=== PATIENT | female | born 1990 | race Hispanic/Latino ===

== ENCOUNTER 2017-07-09 21:19 | Emergency (ER) | payer MEDICAID, OTHER ==
[2017-07-09 21:19] VITALS: BMI 20.2
[2017-07-09 21:25] VITALS: RESP 16; TEMP 98.2
[2017-07-09] MEDS ORDERED: TDAP Vaccine 0.5 mL Syr IM ONE (21:49)
--- NOTE | 2017-07-09 21:52 | ED PDOC ---
Arrival/HPI - General Chief Complaint: Finger,Hand,&Wrist Time Seen by Provider: 07/09/17 21:47 Historian: Patient, Partner - History of Present Illness Narrative History of Present Illness (Text): you were treated in the ED today for accidentally closing a door on your left 2nd finger otherwise without any nausea/vomiting/headache/dizziness/difficulty breathing/chest pain/abdomen pain/numbness/tingling/loss of limb function/pain with urination. 07/09/17 21:51 07/09/17 21:57 Past Medical History - Provider Review Nursing Documentation Reviewed: Yes - Travel History Have you recently traveled outside [place] w/in the past 3 mons?: No - Infectious Disease Hx of Infectious Diseases: None - Tetanus Immunization Tetanus Immunization: Unknown - Psychiatric Hx Psychophysiologic Disorder: No Hx Substance Use: No - Surgical History Other/Comment: lasik - Anesthesia Hx Anesthesia: Yes Family/Social History - Physician Review Nursing Documentation Reviewed: Yes Family/Social History: No Known Family HX Smoking Status: Light Smoker < 10 Cigarettes Daily Hx Alcohol Use: Yes Frequency of alcohol use: Socially Hx Substance Use: No Allergies/Home Meds Allergies/Adverse Reactions: Allergies No Known Allergies Allergy (Verified 07/09/17 21:20) Review of Systems - Review of Systems Constitutional: Normal Eyes: Normal ENT: Normal Respiratory: Normal Cardiovascular: Normal Gastrointestinal: Normal Genitourinary Female: Normal Musculoskeletal: Other (left 2nd finger pain) Skin: Other (see msk) Neurological: Normal Endocrine: Normal Hemo/Lymphatic: Normal Psychiatric: Normal Physical Exam Vital Signs Reviewed: Yes Vital Signs Temp Pulse Resp BP Pulse Ox 07/09/17 21:21 98.2 F 69 16 117/79 97 Temperature: Afebrile Blood Pressure: Normal Pulse: Regular Respiratory Rate: Normal Appearance: Positive for: Well-Appearing Pain Distress: Mild Mental Status: Positive for: Alert and Oriented X 3 - Systems Exam Head: Present: Atraumatic, Normocephalic Pupils: Present: PERRL Extroacular Muscles: Present: EOMI Conjunctiva: Present: Normal Ears: Present: Normal Mouth: Present: Moist Mucous Membranes Pharnyx: Present: Normal Nose (External): Present: Atraumatic Nose (Internal): Present: Normal Inspection Neck: Present: Normal Range of Motion Respiratory/Chest: Present: Clear to Auscultation, Good Air Exchange Cardiovascular: Present: Regular Rate and Rhythm Abdomen: No: Tenderness, Distention, Normal Bowel Sounds, Peritoneal Signs, Rebound, Guarding, McBurney's Point Tender, Rovsing's Sign Present, Hernias, Feeding Tubes, Ostomy Tubes, Mass/Organomegaly, Scars, Other Back: Present: Normal Inspection Upper Extremity: Present: Other (left 2nd fingertip shear type lac at base of fingernal, w flap hanging and non-painted nail area no acute laceration or hematoma noted. tenderness at the lac area, but +from/warm/sensation/cap refill/ pink/radial pulse wo any other bony tenderness.) Lower Extremity: Present: Normal Inspection Neurological: Present: GCS=15, CN II-XII Intact, Speech Normal, Motor Func Grossly Intact Skin: Present: Warm, Normal Color, Other (see msk for left 2nd finger) Psychiatric: Present: Alert, Oriented x 3, Normal Insight, Normal Concentration Medical Decision Making ED Course and Treatment: you were treated in the ED today for accidentally closing a door on your left 2nd finger otherwise without any nausea/vomiting/headache/dizziness/difficulty breathing/chest pain/abdomen pain/numbness/tingling/loss of limb function/pain with urination. You were otherwise breathing easily, smiling with your boyfriend , good strength/sensation, walking easily, clear lungs, no abdomen tenderness, left 2nd fingertip area skin shearing without a suturable shearp type laceration with flap and tenderness of the left 2nd fingertip area without underneath fingernail laceration noted at base of fingernail paint edge, otherwise no other bony tenderness, no fever temp 98.2, stable heart rate 69, stable breathing rate 16, excellent oxygen level 97% room air, stable blood pressure 117/79, urine test negative, radiology left 2nd finger xray with area of possible bone injury thus splinted for protection/comfort, had a long discussion about the only way to truly know if underneath nailbed injury is to remove fingernail but you refused and cautioned for complications/limb loss, given motrin, percocet and tetanus booster done in the ED with improvement , counselled to keep left 2nd finger splint in place till first clinic visit and thus discharged home with boyfriend who is driving. 1. Recommend tylenol as directed for mild pain. recommend motrin as directed for moderate pain. recommend percocet as directed for breakthrough pain and don't work/drive/drink alcohol when using 2. Recommend keflex as directed for infection control. 3. recommend keep wound dry for 2 days, bacitracin ointment daily. dressing change daily. 4. Recommend follow-up primary care 2 days to review symptoms, get final xray report and orthopedics/hand clinic. 5. If any worsening pain, fever, chills , nausea, vomiting, difficulty breathing, numbness, loss of limb function, pain with urination or any medical condition then return to the ED. 07/09/17 22:04 07/09/17 22:24 07/09/17 22:32 07/09/17 22:38 left 2nd fingersplint/bacitracin ointment per ed body technician. - RAD Interpretation Narrative RAD Interpretations (Text): 07/09/17 22:26 left 2nd finger possible tip injury. Radiology Orders: 07/09/17 21:50 HAND LEFT 2ND DIGIT (FINGER) [RAD] Stat Toe Closing Machine Tender: ED Physician - Medication Orders Current Medication Orders: Discontinued Medications Bacitracin (Bacitracin) 1 gm TOP ONCE ONE Stop: 07/09/17 22:25 Cephalexin Monohydrate (Keflex) 250 mg PO STAT STA PRN Reason: Protocol Stop: 07/09/17 21:50 Last Admin: 07/09/17 22:02 Dose: 250 mg Ibuprofen (Motrin Tab) 800 mg PO STAT STA Stop: 07/09/17 21:50 Last Admin: 07/09/17 22:02 Dose: 800 mg Oxycodone/Acetaminophen (Percocet 5/325 Mg Tab) 1 tab PO STAT STA Stop: 07/09/17 22:32 Tetanus/Reduced Diphtheria/Acell Pertussis (Boostrix Vaccine Inj) 0.5 ml IM .ONCE ONE Stop: 07/09/17 21:50 Last Admin: 07/09/17 22:02 Dose: 0.5 ml Immunization Registry Document 07/09/17 22:02 YP (Rec: 07/09/17 22:02 YP [facility] [id number] Immunization Registry Consent Date 06/11/17 Disposition/Present on Arrival - Present on Arrival Any Indicators Present on Arrival: Yes History of DVT/PE: No History of Uncontrolled Diabetes: No Urinary Catheter: No History of Decub. Ulcer: No History Surgical Site Infection Following: None - Disposition Have Diagnosis and Disposition been Completed?: Yes Diagnosis: Finger laceration Disposition: HOME/ ROUTINE Disposition Time: 22:43 Patient Problems: Current Active Problems Problem Status Onset Finger laceration Acute Condition: IMPROVED Additional Instructions: you were treated in the ED today for accidentally closing a door on your left 2nd finger otherwise without any nausea/vomiting/headache/dizziness/difficulty breathing/chest pain/abdomen pain/numbness/tingling/loss of limb function/pain with urination. You were otherwise breathing easily, smiling with your boyfriend , good strength/sensation, walking easily, clear lungs, no abdomen tenderness, left 2nd fingertip area skin shearing without a suturable shearp type laceration with flap and tenderness of the left 2nd fingertip area without underneath fingernail laceration noted at base of fingernail paint edge, otherwise no other bony tenderness, no fever temp 98.2, stable heart rate 69, stable breathing rate 16, excellent oxygen level 97% room air, stable blood pressure 117/79, urine test negative, radiology left 2nd finger xray with area of possible bone injury thus splinted for protection/comfort, had a long discussion about the only way to truly know if underneath nailbed injury is to remove fingernail but you refused and cautioned for complications/limb loss, given motrin, percocet and tetanus booster done in the ED with improvement , counselled to keep left 2nd finger splint in place till first clinic visit and thus discharged home with boyfriend who is driving. 1. Recommend tylenol as directed for mild pain. recommend motrin as directed for moderate pain. recommend percocet as directed for breakthrough pain and don't work/drive/drink alcohol when using 2. Recommend keflex as directed for infection control. 3. recommend keep wound dry for 2 days, bacitracin ointment daily. dressing change daily. 4. Recommend follow-up primary care 2 days to review symptoms, get final xray report and orthopedics/hand clinic. 5. If any worsening pain, fever, chills , nausea, vomiting, difficulty breathing, numbness, loss of limb function, pain with urination or any medical condition then return to the ED. Prescriptions: Cephalexin [Keflex] 250 mg PO Q6 3 Days #12 capsule oxyCODONE/Acetaminophen [Percocet 5/325 mg Tab] 1 ea PO Q8 PRN 2 Days #3 tab MDD 3 PRN Reason: breakthrough pain Referrals: Monica Lovell MD [Primary Care Provider] - Follow up with primary Forms: [employer] (Danish)
[2017-07-09] MEDS ORDERED: Bacitracin Ointment 30 GM TUBE TOP ONE (22:24)
[2017-07-09] MEDS ORDERED: Oxycodone/Acetaminophen 5/325 mg Tab PO STA (22:31)
[2017-07-09 22:57] VITALS: BP 122/63; PULSE 71; O2SAT 100
--- NOTE | 2017-07-10 10:02 | RAD ---
PROCEDURE: Left Index finger radiographs. HISTORY: 26yoF, left finger injury COMPARISON: None. TECHNIQUE: AP radiograph of the left hand, as well as spot oblique and lateral images of index finger were obtained. FINDINGS: LEFT INDEX FINGER: Normal left index finger, without fracture or focal lesion. Remainder of the left hand (as seen on the AP view) grossly intact. No cortical destructive changes. JOINTS: Normal. SOFT TISSUES: There appears to be localized laceration/disruption of the skin surface and subcutaneous tissues along the dorsal/radial aspect 2nd finger at the at the level of the distal phalanx. No radiopaque foreign bodies. OTHER FINDINGS: None. IMPRESSION: There appears to be localized laceration/disruption of the skin surface and subcutaneous tissues along the dorsal/radial aspect 2nd finger at the at the level of the distal phalanx.
== END 2017-07-09 22:57 | disposition home or self-care (01) ==
LOC: ED 21:19
DX: S61.211A Laceration without foreign body of left index finger without damage to nail, initial encounter (principal); W22.8XXA Striking against or struck by other objects, initial encounter; Z23 Encounter for immunization; F17.210 Nicotine dependence, cigarettes, uncomplicated

== ENCOUNTER 2018-04-02 03:45 | Emergency (ER) | payer MEDICAID, OTHER ==
[2018-04-02 03:45] VITALS: BMI 20.2
[2018-04-02 04:07] VITALS: RESP 18; TEMP 98.6
--- NOTE | 2018-04-02 04:36 | ED PDOC ---
Arrival/HPI - General Chief Complaint: Psychiatric Evaluation Time Seen by Provider: 04/02/18 03:53 Historian: Patient - History of Present Illness Narrative History of Present Illness (Text): 04/02/18 04:32 27 year old female, whose past medical history includes depression and anxiety, presents to the emergency department complaining of feeling very stressed at work. Patient states she called her friend when she was overwhelmed and her friend called the police because she was worried and wanted them to check up on her. Patient never verbally reported suicidal ideation on the phone to her friend. Patient states she has a history of depression and anxiety and used to see a therapist, but was not able to lately due to insurance problems. She states she got her insurance back and is trying to go back to see a therapist. Patient denies any fever, chills, chest pain, shortness of breath, nausea, vomiting, diarrhea, urinary symptoms, back pain, neck pain, headache, dizziness , suicidal/homicidal ideation, or any other complaints. Time/Duration: Prior to Arrival Symptom Onset: Sudden Symptom Course: Resolved Activities at Onset: Light Context: Home Past Medical History - Provider Review Nursing Documentation Reviewed: Yes - Infectious Disease Hx of Infectious Diseases: None - Tetanus Immunization Tetanus Immunization: Unknown - Psychiatric Hx Psychophysiologic Disorder: No Hx Substance Use: No - Surgical History Other/Comment: lasik - Anesthesia Hx Anesthesia: Yes Family/Social History - Physician Review Nursing Documentation Reviewed: Yes Family/Social History: No Known Family HX Smoking Status: Light Smoker < 10 Cigarettes Daily Hx Alcohol Use: Yes Frequency of alcohol use: Socially Hx Substance Use: No Allergies/Home Meds Allergies/Adverse Reactions: Allergies No Known Allergies Allergy (Verified 07/09/17 21:20) Home Medications: Home Meds Medication Instructions Recorded Confirmed No Known Home Med 04/02/18 04/02/18 Review of Systems - Physician Review All systems were reviewed & negative as marked: Yes - Review of Systems Constitutional: absent: Fevers, Other (Chills) Respiratory: absent: SOB Cardiovascular: absent: Chest Pain Gastrointestinal: absent: Diarrhea, Nausea, Vomiting Genitourinary Female: absent: Dysuria, Frequency, Hematuria Musculoskeletal: absent: Back Pain, Neck Pain Neurological: absent: Headache, Dizziness Psychiatric: absent: Suicidal Ideation (homicidal ideation) Physical Exam Vital Signs Reviewed: Yes Vital Signs Temp Pulse Resp BP Pulse Ox 04/02/18 04:20 70 18 110/72 100 04/02/18 04:03 98.6 F 76 18 113/69 99 Temperature: Afebrile Blood Pressure: Normal Pulse: Regular Respiratory Rate: Normal Appearance: Positive for: Well-Appearing, Non-Toxic, Comfortable, Other (tearful ) Pain Distress: None Mental Status: Positive for: Alert and Oriented X 3 - Systems Exam Head: Present: Atraumatic, Normocephalic Pupils: Present: PERRL Extroacular Muscles: Present: EOMI Conjunctiva: Present: Normal Mouth: Present: Moist Mucous Membranes Neck: Present: Normal Range of Motion Respiratory/Chest: Present: Clear to Auscultation, Good Air Exchange. No: Respiratory Distress, Accessory Muscle Use Cardiovascular: Present: Regular Rate and Rhythm, Normal S1, S2. No: Murmurs Abdomen: No: Tenderness, Distention, Peritoneal Signs Back: Present: Normal Inspection Upper Extremity: Present: Normal Inspection. No: Cyanosis, Edema Lower Extremity: Present: Normal Inspection. No: Edema Neurological: Present: GCS=15, CN II-XII Intact, Speech Normal Skin: Present: Warm, Dry, Normal Color. No: Rashes Psychiatric: Present: Alert, Oriented x 3, Normal Insight, Normal Concentration Medical Decision Making ED Course and Treatment: 04/02/18 04:02 Impression: 27 year old female presents by EMS after friend called the police after a phone call of patient feeling very overwhelmed. Patient reports she's been feeling very stressed at work. Plan: -- Reassess and disposition Progress Notes: 04/02/18 04:39 Patient denies any suicidal ideation and denies wanting a PES evaluation. Patient wants to be discharged home. Patient reports she is trying to go back to see her therapist. Patient is in no acute distress. I have discussed the plan with the patient, who expresses understanding. Patient in agreement with plan to be discharged home. Patient is stable for discharge. Patient was instructed to follow up with physician or return if symptoms worsen or new concerning symptoms arise. - Scribe Statement The provider has reviewed the documentation as recorded by the Scribe Macy Bowden Provider Scribe Attestation: All medical record entries made by the Scribe were at my direction and personally dictated by me. I have reviewed the chart and agree that the record accurately reflects my personal performance of the history, physical exam, medical decision making, and the department course for this patient. I have also personally directed, reviewed, and agree with the discharge instructions and disposition. Disposition/Present on Arrival - Present on Arrival Any Indicators Present on Arrival: No History of DVT/PE: No History of Uncontrolled Diabetes: No Urinary Catheter: No History of Decub. Ulcer: No History Surgical Site Infection Following: None - Disposition Have Diagnosis and Disposition been Completed?: Yes Diagnosis: Anxiety Disposition: HOME/ ROUTINE Disposition Time: 04:20 Condition: FAIR Discharge Instructions (ExitCare): Anxiety, Adult (DC) Additional Instructions: RAJWINDER RIZVI, thank you for letting us take care of you today. Your provider was Tosha Chowdhury MD and you were treated for ANXIETY. The emergency medical care you received today was directed at your acute symptoms. If you were prescribed any medication, please fill it and take as directed. It may take several days for your symptoms to resolve. Return to the Emergency Department if your symptoms worsen, do not improve, or if you have any other problems. Please contact your doctor or call one of the physicians/clinics you have been referred to that are listed on the Patient Visit Information form that is included in your discharge packet. Bring any paperwork you were given at discharge with you along with any medications you are taking to your follow up visit. Our treatment cannot replace ongoing medical care by a primary care provider outside of the emergency department. Thank you for allowing the [facility] team to be part of your care today. If you had an X-Ray or CT scan: A Radiologist will review the ED reading if any change in treatment is needed we will contact you. If you had a blood, urine, or wound culture: It will take several days for the results, if any change in treatment is needed we will contact you. If you had an STI test: It will take 48 hours for the results. Please call after 1 week if you have not heard back. Referrals: Monica Lovell MD [Primary Care Provider] - Follow up with primary Forms: [employer] (Lithuanian)
[2018-04-02 05:10] VITALS: BP 110/72; PULSE 70; O2SAT 100
== END 2018-04-02 04:20 | disposition home or self-care (01) ==
LOC: ED 03:45
DX: F41.9 Anxiety disorder, unspecified (principal); F17.210 Nicotine dependence, cigarettes, uncomplicated